=== PATIENT | male | born 1995 | race Caucasian/White ===

== ENCOUNTER 2019-08-28 19:34 | Emergency (ER) | payer OTHER ==
[~2019-08-28] VITALS: Ht 175.3 cm; Wt 77.3 kg
[2019-08-29] MEDS ORDERED: ACETAMINOPHEN 500 MG TABLET PO ONE
[2019-08-29] MEDS ORDERED: IBUPROFEN 600 MG TABLET PO ONE
[2019-08-29 01:00] VITALS: BP 133/79
== END 2019-08-29 03:35 | disposition home or self-care (01) ==
LOC: EMS 19:38
DX: S29.012A Strain of muscle and tendon of back wall of thorax, initial encounter (principal); F12.90 Cannabis use, unspecified, uncomplicated; V49.9XXA Car occupant (driver) (passenger) injured in unspecified traffic accident, initial encounter; Y93.89 Activity, other specified; Y92.488 Other paved roadways as the place of occurrence of the external cause; Y99.8 Other external cause status